=== PATIENT | female | born 1995 | race Caucasian/White ===

== ENCOUNTER 2016-09-07 23:27 | Emergency (ER) | payer SELFPAY ==
[2016-09-07 23:47] VITALS: O2SAT 95
[2016-09-07] MEDS ORDERED: ORPHENADRINE CITRATE 30 MG/ML AMP IM ONE (23:50)
[2016-09-07] MEDS ORDERED: KETOROLAC TROMETHAMINE INJ 30 MG/ML VIAL ONE (23:50)
[2016-09-07] MEDS ORDERED: KETOROLAC TROMETHAMINE INJ 30 MG/ML VIAL IM ONE (23:50)
[2016-09-07] MEDS ORDERED: ORPHENADRINE CITRATE 30 MG/ML AMP ONE (23:50)
--- NOTE | 2016-09-07 23:53 | ED.PDOC ---
History of Present Illness - General Chief Complaint: Back Pain or Injury Time Seen by Provider: 09/07/16 23:27 Source: patient Exam Limitations: clinical condition - History of Present Illness Initial Comments: Patient reports bending over to pick something up at work and felt pain in her back. She did not fall. The pain is left lower back with no radiation. Pain is constant, worse with movement, better with rest. Most comfortable position is lying flat. No previous injuries. Timing/Duration: 1/2 hour Quality/Severity: moderate Back Pain Radiation: other - none Method of Injury/Prior Injury: other - picked up a heavy box Improving Factors: rest Worsening Factors: movement Associated Symptoms: denies symptoms Allergies/Adverse Reactions: Allergies NO KNOWN ALLERGY Allergy (Verified 09/07/16 23:48) Home Medications: Ambulatory Orders Cyclobenzaprine HCl [Flexeril] 10 mg PO TID #20 tab 09/07/16 Review of Systems - Review of Systems Constitutional: States: no symptoms reported EENTM: States: no symptoms reported Respiratory: States: no symptoms reported Cardiology: States: no symptoms reported Gastrointestinal/Abdominal: States: no symptoms reported Genitourinary: States: no symptoms reported Musculoskeletal: States: see HPI Skin: States: no symptoms reported Neurological: States: no symptoms reported Endocrine: States: no symptoms reported Hematologic/Lymphatic: States: no symptoms reported Past Medical History (General) - Patient Medical History Surgical History: appendectomy - Vaccination History Hx Tetanus, Diphtheria Vaccination: Yes Hx Influenza Vaccination: No Hx Pneumococcal Vaccination: No Immunizations Up to Date: Yes - Social History Hx Tobacco Use: No Hx Alcohol Use: No Hx Substance Use: No Hx Substance Use Treatment: No Hx Depression: No Feels Threatened In Home Enviroment: No Feels Threatened In a Relationship: No Hx Physical Abuse: No Hx Emotional Abuse: No Hx Suspected Abuse: No - Activities of Daily Living Hospice Agency (if applicable):: None - Female History Patient is a Female of Child Bearing Age (10 -59 yrs old): Yes Patient : No Family Medical History - Family History Mother Family History: No Known Living Status: Still Living Physical Exam - Physical Exam General Appearance: Obvious distress Eyes, Ears, Nose, Throat Exam: normal ENT inspection Neck Exam: non-tender, full range of motion, normal alignment Cardiovascular/Respiratory: regular rate, rhythm, normal peripheral pulses Gastrointestinal/Abdominal: normal bowel sounds, non tender, soft Back Exam: no vertebral tenderness, other - left quadratus lumborum is TTP Extremity Exam: no evidence of injury, pain with movement, other - Patient can heel walk without worsening the low back pain. Straight and cross leg raises are negative. Neurologic: no motor/sensory deficits, other - 2+ patellar reflexes Skin Exam: normal color Progress - Progress Progress: 09/07/16 23:56 Patient's urine hcg was negative. Patient received Norflex 60 mg IM and toradol 30 mg IM significantly helped with the pain. 09/08/16 00:16 Departure - Departure Clinical Impression: Low back sprain Disposition: Discharge to Home or Self Care Condition: Good Departure Forms: ED Discharge - Pt. Copy, Patient Portal Self Enrollment Diet: resume usual diet Activity: increase activity as tolerated Prescriptions: Cyclobenzaprine HCl [Flexeril] 10 mg PO TID #20 tab Home Medications: Ambulatory Orders Cyclobenzaprine HCl [Flexeril] 10 mg PO TID #20 tab 09/07/16 Additional Instructions: Use ice to the lower back for the first three days as needed for pain. Then switch to heat twice per day until pain is resolved. Use the prescription as written. You may also use tylenol. Return to activity as tolerated. See your primary care physician if pain has not resolved in 4 weeks.
[2016-09-08 00:37] VITALS: BP 118/70; TEMP 98
== END 2016-09-08 00:21 | disposition home or self-care (01) ==
LOC: ER 23:27
DX: S33.5XXA Sprain of ligaments of lumbar spine, initial encounter (principal); X50.0XXA Overexertion from strenuous movement or load, initial encounter; Y99.0 Civilian activity done for income or pay
CPT/HCPCS: 81025; J1885; J2360

== ENCOUNTER 2016-10-19 17:50 | Emergency (ER) | payer SELFPAY ==
[2016-10-19 18:02] VITALS: TEMP 98
--- NOTE | 2016-10-19 18:17 | ED.PDOC ---
History of Present Illness - General Chief Complaint: General Stated Complaint: Right inner foot discomfort/swelling Time Seen by Provider: 10/19/16 18:14 Source: patient, RN notes reviewed, Vital Signs reviewed, family - Mother Exam Limitations: no limitations - History of Present Illness Initial Comments: Patient comes in with c/o R foot pain and redness. Proximal arch and R side of heel, plantar aspect, are erythematous, swollen, tender and warm to the touch. This started 3 days ago and is getting progressively worse. She stands on her feet all day at work and today she could no longer stand on her foot. No recent injury. Timing/Duration: getting worse - over past 3 days Severity: severe Improving Factors: rest Worsening Factors: movement, other - touching Associated Symptoms: denies symptoms Allergies/Adverse Reactions: Allergies NO KNOWN ALLERGY Allergy (Verified 10/19/16 18:01) Home Medications: Ambulatory Orders Ibuprofen 800 mg PO TID #30 tab 10/19/16 Review of Systems - Review of Systems Constitutional: States: no symptoms reported Respiratory: States: no symptoms reported Cardiology: States: no symptoms reported Musculoskeletal: States: see HPI Skin: States: see HPI Neurological: States: no symptoms reported All other Systems: No Change from Baseline Past Medical History (General) - Patient Medical History Hx Stroke: No Hx Congestive Heart Failure: No Hx Diabetes: No Surgical History: appendectomy - Vaccination History Hx Tetanus, Diphtheria Vaccination: Yes Hx Influenza Vaccination: No Hx Pneumococcal Vaccination: No - Social History Hx Tobacco Use: No Hx Alcohol Use: No Hx Substance Use: No Hx Substance Use Treatment: No Hx Depression: No Hx Physical Abuse: No Hx Emotional Abuse: No Hx Suspected Abuse: No - Female History Patient is a Female of Child Bearing Age (10 -59 yrs old): Yes Patient : No Family Medical History - Family History Mother Family History: No Known Living Status: Still Living Physical Exam - Physical Exam General Appearance: Alert, No apparent distress, Well Developed, Well Groomed, Well Hydrated, Well Nourished, Other - In obvious pain Cardiovascular/Chest: normal peripheral pulses Peripheral Pulses: dorsalis pedis,right: 2+ Extremity: inflammation, swelling, other - R foot: right proximal aspect of arch /heel is erythematous, warm, tender and swollen. Pressing on achilles tendon causes pain. Pressing on plantar fascia distal to area of pain/erythema causes pain. No pain with dorsiflexion of great toe Neurologic: no motor/sensory deficits, alert, normal mood/affect, oriented x 3 Skin Exam: normal color, warm/dry Comments: Vital Signs 10/19/16 17:50 Temperature 98.0 F Pulse Rate [ 113 H pulse ox] Respiratory 20 Rate Blood Pressure 125/84 [right brachial ] O2 Sat by Pulse 97 Oximetry Progress - Progress Progress: 10/19/16 19:15 Discussed Plantar Fasciitis and treatment including wearing boot except when in shower for at least 1 week and Ibuprofen TID with food. - EKG/XRAY/CT XRAY: Foot: nl per Radiologist Departure - Departure Clinical Impression: Plantar fasciitis of right foot Time of Disposition: 19:16 Disposition: Discharge to Home or Self Care Condition: Good Departure Forms: ED Discharge - Pt. Copy, Patient Portal Self Enrollment, Work Release Form Instructions: DI for Plantar Fasciitis Diet: resume usual diet Activity: increase activity as tolerated Prescriptions: Ibuprofen 800 mg PO TID #30 tab Home Medications: Ambulatory Orders Ibuprofen 800 mg PO TID #30 tab 10/19/16 Additional Instructions: Wear boot except for when in shower for at least 1 week
--- NOTE | 2016-10-19 19:11 | RAD ---
EXAM DESCRIPTION: Foot,Right 3 Views CLINICAL HISTORY: pain/erythema proximal arch COMPARISON: None. FINDINGS: AP, lateral and oblique views of the right foot were submitted. There is no discrete acute fracture or dislocation. Bone mineralization is within normal limits. There is no radiopaque foreign body material. IMPRESSION: No acute fracture or dislocation. Electronically signed by: Baljit Carroll MD 10/19/2016 7:10 PM CDT
[2016-10-19] MEDS ORDERED: methylPREDNISolone SODIUM SUC 125 MG/2 ML VIAL IM ONE (19:14)
[2016-10-19 19:29] VITALS: BP 116/79; O2SAT 99
== END 2016-10-19 19:30 | disposition home or self-care (01) ==
LOC: ER 17:50
DX: M72.2 Plantar fascial fibromatosis (principal)
CPT/HCPCS: 73630; J2930

== ENCOUNTER 2017-08-01 23:14 | Emergency (ER) | payer SELFPAY ==
--- NOTE | 2017-08-02 00:37 | ED.PDOC ---
History of Present Illness - General Chief Complaint: Skin/Abrasion/Tear Stated Complaint: possible insect bite or abscess Time Seen by Provider: 08/02/17 00:37 Source: patient Exam Limitations: no limitations - History of Present Illness Initial Comments: Denise Bell 22 y/o female brought by mom with tender red swollen area right elbow since Friday.She stated initially looks like insect bite and mom squeeze out the bump thinking there might be a thorn on the skin but nothing came out.Seen primary Md was prescribed Bactrim but not better.No trauma to right elbow,no fever or chills. Timing/Duration: other - see hpi Severity: moderate Location: extremities - right elbow Improving Factors: rest Worsening Factors: movement Associated Symptoms: other - see hpi Allergies/Adverse Reactions: Allergies NO KNOWN ALLERGY Allergy (Verified 10/19/16 18:01) Home Medications: Ambulatory Orders Ibuprofen 800 mg PO TID #30 tab 10/19/16 Clindamycin HCl 300 mg PO TID 7 Days #21 cap 08/02/17 Tramadol HCl 50 mg PO TID PRN #10 tab 08/02/17 Review of Systems - Review of Systems Constitutional: States: no symptoms reported EENTM: States: no symptoms reported Skin: States: see HPI All other Systems: Reviewed and Negative, No Change from Baseline Past Medical History (General) - Patient Medical History Hx Seizures: No Hx Stroke: No Hx Dementia: No Hx Asthma: No Hx of COPD: No Hx Cardiac Disorders: No Hx Congestive Heart Failure: No Hx Pacemaker: No Hx Hypertension: No Hx Thyroid Disease: No Hx Diabetes: No Hx Gastroesophageal Reflux: No Hx Renal Disease: No Hx of HIV: No Hx MRSA: No Surgical History: appendectomy, other - eye surgery in child lilly - Vaccination History Hx Tetanus, Diphtheria Vaccination: No Hx Influenza Vaccination: No Hx Pneumococcal Vaccination: No - Social History Hx Tobacco Use: No Hx Alcohol Use: Yes - social Hx Substance Use: No Hx Substance Use Treatment: No Hx Depression: No Hx Physical Abuse: No Hx Emotional Abuse: No Hx Suspected Abuse: No - Female History Patient is a Female of Child Bearing Age (10 -59 yrs old): Yes Hx Last Menstrual Period: 07/01/17 Patient : No - Triage Comment ED Triage Comment: Patient states she believes she has a spider bit to her right elbow. Went to clinic yesterday was placed onto bactrim but today the redness is worse and she is having nausea. Family Medical History - Family History Mother Family History: No Known Living Status: Still Living Physical Exam - Physical Exam General Appearance: Alert, Comfortable, No apparent distress Eyes, Ears, Nose, Throat Exam: normal ENT inspection Neck: supple, normal inspection Cardiovascular/Chest: normal peripheral pulses, regular rate, rhythm, no murmur Respiratory: lungs clear Gastrointestinal/Abdominal: non tender, soft Extremity: no pedal edema, no calf tenderness Neurologic: alert, oriented x 3 Skin Exam: warm/dry, normal color Skin Problem Location: upper extremities - right elbow Skin Character: erythema, tenderness Lymphatic: no adenopathy Progress - Progress Progress: 08/02/17 01:06 Vital Signs - 8 hr 08/01/17 23:51 Temperature 95.5 F L Pulse Rate [ 98 H monitor] Respiratory 18 Rate Blood Pressure 123/85 [Left Arm] O2 Sat by Pulse 100 Oximetry Departure - Departure Clinical Impression: Cellulitis of right elbow Time of Disposition: 01:09 Disposition: Discharge to Home or Self Care Condition: Good Departure Forms: ED Discharge - Pt. Copy, Patient Portal Self Enrollment Instructions: Cellulitis, DI for Cellulitis -- Adult Prescriptions: Clindamycin HCl 300 mg PO TID 7 Days #21 cap Tramadol HCl 50 mg PO TID PRN #10 tab PRN Reason: Pain Home Medications: Ambulatory Orders Ibuprofen 800 mg PO TID #30 tab 10/19/16 Clindamycin HCl 300 mg PO TID 7 Days #21 cap 08/02/17 Tramadol HCl 50 mg PO TID PRN #10 tab 08/02/17 Additional Instructions: Continue with Bactrim -DS as directed;Recheck [facility] ER 03 Jul 2017;Continue with Ibuprofen(OTC) 2-3 tablets 3 x a day for pain and swelling
[2017-08-02] MEDS ORDERED: CLINDAMYCIN PHOSPHATE 150 MG/ML VIAL IM ONE (01:07)
[2017-08-02] MEDS ORDERED: TETANUS,DIPHTHERIA,PERTUSSIS 1 EA SYG IM ONE (01:07)
[2017-08-02] MEDS ORDERED: HYDROCOD/APAP 7.5/325 (ER DISP) #3 TAB PO ONE (01:07)
[2017-08-02] MEDS ORDERED: HYDROcodone 10MG/APAP 325MG 1 EA TAB PO ONE (01:07)
[2017-08-02] MEDS ORDERED: CLINDAMYCIN HCL CAP 150 MG CAP PO ONE (01:07)
[2017-08-02] MEDS ORDERED: IBUPROFEN 200 MG TAB PO ONE (01:08)
[2017-08-02 01:53] VITALS: BP 112/78; TEMP 97.5; O2SAT 98
== END 2017-08-02 01:53 | disposition home or self-care (01) ==
LOC: ER 23:14
DX: L03.113 Cellulitis of right upper limb (principal); Z23 Encounter for immunization
CPT/HCPCS: 90471; 90715; J3490

== ENCOUNTER 2017-11-12 16:48 | Emergency (ER) | payer MEDICAID ==
[2017-11-12 19:39] VITALS: TEMP 99.5
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
--- NOTE | 2017-11-12 20:38 | US ---
EXAM DESCRIPTION: OB ,Early (0-14wks) CLINICAL HISTORY: 22 years Female, vag bleed, possible miscarriage. COMPARISON: None. TECHNIQUE: Sonographic imaging of the pelvis was performed using a transvaginal transducer. FINDINGS: The uterus measures 8.7 cm x 5.3 cm x 5 cm. No obvious myometrial mass. Single intrauterine gestational sac is identified with mean gestational sac diameter of 2.4 cm corresponding to an estimated gestational age of 7 weeks and 2 days. pole and yolk sac are not yet identified. Ovaries not imaged. There is a small amount of anechoic free fluid in the pelvis. IMPRESSION: 1. Single intrauterine gestational sac with estimated age by mean gestational sac diameter of 7 weeks and 2 days. No evidence of a pole which may be related to early . Follow-up ultrasound correlated with beta hCG level can be obtained as clinically appropriate. 2. Small amount of nonspecific free fluid in the pelvis. Electronically signed by: Jad Regalado MD 11/12/2017 8:37 PM CDT
[2017-11-12 20:53] VITALS: O2SAT 97
[2017-11-12] MEDS ORDERED: ONDANSETRON INJ 4 MG/2 ML VIAL IV ONE (20:58)
[2017-11-12] MEDS ORDERED: MORPHINE SULFATE INJ 10 MG/ML VIAL IV ONE (20:58)
[2017-11-12] MEDS ORDERED: MORPHINE SULFATE INJ 10 MG/ML VIAL IM ONE (21:02)
[2017-11-12] MEDS ORDERED: ONDANSETRON ODT 8 MG TAB SL ONE (21:02)
[2017-11-12 21:26] VITALS: BP 96/67
== END 2017-11-12 21:26 | disposition home or self-care (01) ==
LOC: ER 16:48
DX: O20.0 Threatened abortion (principal); Z3A.01 Less than 8 weeks gestation of pregnancy
CPT/HCPCS: 76813; 80053; 84702; 85025; 86900; 86901; J2270

== ENCOUNTER 2017-12-17 00:48 | Emergency (ER) | payer MEDICAID ==
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
[2017-12-17 02:01] VITALS: BP 125/79; TEMP 97.5; O2SAT 97
== END 2017-12-17 02:02 | disposition home or self-care (01) ==
LOC: ER 00:48
DX: S49.92XA Unspecified injury of left shoulder and upper arm, initial encounter (principal); Z87.891 Personal history of nicotine dependence; W10.9XXA Fall (on) (from) unspecified stairs and steps, initial encounter; Z88.5 Allergy status to narcotic agent; Y92.009 Unspecified place in unspecified non-institutional (private) residence as the place of occurrence of the external cause